=== PATIENT | female | born 1995 | race American Indian/Alaskan Native ===

== ENCOUNTER 2019-03-03 21:42 | Emergency (ER) | payer MEDICAID ==
[2019-03-03 23:01] LABS: Basophils # (Auto) 0.1 K/mm3 (0.0-0.1); Basophils % (Auto) 0.4 % (0.0-1.8); Eosinophils # (Auto) 0.2 K/mm3 (0.0-0.4); Eosinophils % (Auto) 1.2 % (0.0-4.3); Hematocrit 33.1 % (30.3-42.9); Hemoglobin 10.8 gm/dl (10.1-14.3); Lymphocytes # (Auto) 2.8 K/mm3 (1.2-5.4); Lymphocytes % (Auto) 21.6 % (13.4-35.0); Mean Corpuscular HGB Conc 33 % (30-34); Mean Corpuscular Volume 77 fl (79-97); Monocytes # (Auto) 0.9 K/mm3 (0.0-0.8); Platelet Count 370 K/mm3 (140-440); Red Cell Distribution Width 18.1 % (13.2-15.2)
[2019-03-03 23:20] LABS: BUN/Creatinine Ratio 15; Blood Urea Nitrogen 9 mg/dL (7-17); Calcium 9.8 mg/dL (8.4-10.2); Hemolysis Index 1
[2019-03-04 00:59] LABS: Bilirubin,Urine NEG (Negative); Blood,Urine NEG (Negative); Color,Urine Yellow (Yellow); Mucus,Urine FEW /HPF; Protein,Urine <15 mg/dL mg/dL (Negative); Urobilinogen,Urine < 2.0 mg/dL (<2.0)
[2019-03-04] MEDS ORDERED: ZOFRAN IV ONE (02:13)
[2019-03-04] MEDS ORDERED: NACL 0.9% 1000 ML 1,000 ML IV ONE (02:13)
[2019-03-04] MEDS ORDERED: ROCEPHIN/NS 1 GM/50 ML 1 GM/50 ML BAG IV ONE (02:13)
[2019-03-04] MEDS ORDERED: TYLENOL PO ONE (03:18)
--- NOTE | 2019-03-04 03:20 | Ultrasound Report ---
US OB <= 14 weeks fetus INDICATION / CLINICAL INFORMATION: abd pain. COMPARISON: None available. FINDINGS: Single intrauterine gestation demonstrated with heart rate 174 bpm The crown-rump length is 28.6 mm corresponding to a 9 week 5 day gestation. Both ovaries are imaged and appear normal. No fluid collections are seen in the cul-de-sac. IMPRESSION: 1. Viable single 9 week 5 day intrauterine gestation. Signer Name: Andrew Pace MD Signed: 03/04/2019 3:16 AM Workstation Name: [email or web address]
--- NOTE | 2019-03-04 04:38 | Emergency Department Report ---
ED N/V/D HPI - General Chief complaint: Abdominal Pain Stated complaint: EMESIS/ABD PAIN Time Seen by Provider: 03/04/19 02:11 Source: patient Mode of arrival: Ambulatory Limitations: No Limitations - History of Present Illness Initial comments: pt is a 23 y/o aaf who presents for abd pain with nausea and vomiting. pt denies fever or chills pt is G2, pt states n/v is primary complaint there is no vaginal bleeding no vaginal discharge no back pain , last po intake yesterday pt denies diarrhea stools, pain is improved, abd pain described as cramping. MD complaint: nausea, vomiting, abdominal pain (abd cramping ) Onset/Timin -: month(s) Description of Vomiting: food contents Description of Diarrhea: water Associated Abdominal Pain: Yes (abd cramping ) Location: LLQ, RLQ Radiation: none Severity: moderate Pain Scale: 5 Quality: cramping Consistency: constant Improves with: rest Worsens with: movement Associated Symptoms: denies: chest pain, cough, headaches, shortness of breath, syncope - Related Data Previous Rx's Medication Instructions Recorded Last Taken Type Acetaminophen [Acetaminophen TAB] 650 mg PO Q6HR PRN #30 tablet 03/04/19 Unknown Rx Nitrofurantoin [place]/M-Cryst 100 mg PO BID 7 Days #14 capsule 03/04/19 Unknown Rx [Macrobid CAP] Ondansetron [Zofran Odt] 4 mg PO Q8HR #12 tab.rapdis 03/04/19 Unknown Rx Allergies Allergy/AdvReac Type Severity Reaction Status Date / Time No Known Allergies Allergy Unverified 03/03/19 22:39 ED Review of Systems ROS: Stated complaint: EMESIS/ABD PAIN Other details as noted in HPI Constitutional: denies: chills, fever Eyes: denies: eye pain, eye discharge, vision change ENT: denies: ear pain, throat pain Respiratory: denies: cough, shortness of breath, wheezing Cardiovascular: denies: chest pain, palpitations Endocrine: no symptoms reported Gastrointestinal: abdominal pain, nausea, diarrhea. denies: constipation, hematemesis, melena, hematochezia Genitourinary: urgency, dysuria, frequency. denies: hematuria, discharge Musculoskeletal: denies: back pain, joint swelling, arthralgia Skin: denies: rash, lesions Neurological: denies: headache, weakness, paresthesias Psychiatric: denies: anxiety, depression Hematological/Lymphatic: denies: easy bleeding, easy bruising ED Past Medical Hx - Past Medical History Previous Medical History?: No - Surgical History Past Surgical History?: No - Social History Smoking Status: Never Smoker Substance Use Type: None - Medications Home Medications: Home Medications Medication Instructions Recorded Confirmed Last Taken Type Acetaminophen [Acetaminophen TAB] 650 mg PO Q6HR PRN #30 tablet 03/04/19 Unknown Rx Nitrofurantoin [place]/M-Cryst 100 mg PO BID 7 Days #14 capsule 03/04/19 Unknown Rx [Macrobid CAP] Ondansetron [Zofran Odt] 4 mg PO Q8HR #12 tab.rapdis 03/04/19 Unknown Rx ED Physical Exam - General Limitations: No Limitations General appearance: alert, in no apparent distress - Head Head exam: Present: atraumatic, normocephalic - Eye Eye exam: Present: normal appearance, PERRL, EOMI Pupils: Present: normal accommodation - ENT ENT exam: Present: normal orophraynx, mucous membranes moist, TM's normal bilaterally - Neck Neck exam: Present: normal inspection, full ROM. Absent: tenderness, meningismus, lymphadenopathy, thyromegaly - Respiratory Respiratory exam: Present: normal lung sounds bilaterally. Absent: respiratory distress, wheezes, rhonchi, stridor, chest wall tenderness - Cardiovascular Cardiovascular Exam: Present: regular rate, normal rhythm, normal heart sounds. Absent: systolic murmur, diastolic murmur, rubs, gallop - GI/Abdominal GI/Abdominal exam: Present: soft, normal bowel sounds. Absent: distended, tenderness, guarding, rebound, rigid, mass, bruit, hernia - Rectal Rectal exam: Present: deferred - External exam: Present: other (exam deferred per patient ) Speculum exam: Present: erythema, laceration - Extremities Exam Extremities exam: Present: normal inspection, full ROM, normal capillary refill. Absent: tenderness - Back Exam Back exam: Present: normal inspection, full ROM. Absent: tenderness, CVA tenderness (R), CVA tenderness (L), muscle spasm, paraspinal tenderness, rash noted - Neurological Exam Neurological exam: Present: alert, oriented X3, CN II-XII intact, normal gait, reflexes normal. Absent: motor sensory deficit - Expanded Neurological Exam Expanded Patient oriented to: Present: person, place, time Speech: Present: fluid speech Cranial nerves: EOM's Intact: Normal, Gag Reflex: Normal, Tongue Deviation: Normal, Nystagmus: Normal Motor strength exam: RUE: 5, LUE: 5, RLE: 5, LLE: 5 Best Eye Response ([place]): (4) open spontaneously Best Motor Response ([place]): (6) obeys commands Best Verbal Response ([place]): (5) oriented [place] Total: 15 - Psychiatric Psychiatric exam: Present: normal affect - Skin Skin exam: Present: warm, dry, intact, normal color. Absent: rash, cyanosis, erythema, abrasion ED Course Vital Signs 03/03/19 22:34 Temperature 98.7 F Pulse Rate 72 Respiratory 18 Rate Blood Pressure 108/86 O2 Sat by Pulse 100 Oximetry ED Medical Decision Making - Lab Data Result diagrams: 03/03/19 22:46 03/03/19 22:46 Labs 03/03/19 03/03/19 03/03/19 22:46 22:46 22:46 WBC 13.0 H RBC 4.30 Hgb 10.8 Hct 33.1 MCV 77 L MCH 25 L MCHC 33 RDW 18.1 H Plt Count 370 Lymph % (Auto) 21.6 [place] % (Auto) 7.0 Eos % (Auto) 1.2 Baso % (Auto) 0.4 Lymph # 2.8 [place] # 0.9 H Eos # 0.2 Baso # 0.1 Seg Neutrophils % 69.8 Seg Neutrophils # 9.1 H Sodium 134 L Potassium 3.6 Chloride 100.2 Carbon Dioxide 24 Anion Gap 13 BUN 9 Creatinine 0.6 L Estimated GFR > 60 BUN/Creatinine Ratio 15 Glucose 93 Calcium 9.8 HCG, Quant [id number] H Urine Color Urine Turbidity Urine pH Ur Specific [place] Urine Protein Urine Glucose (UA) Urine Ketones Urine Blood Urine Nitrite Urine Bilirubin Urine Urobilinogen Ur Leukocyte Esterase Urine WBC (Auto) Urine RBC (Auto) U Epithel Cells (Auto) Urine Mucus 03/03/19 23:34 WBC RBC Hgb Hct MCV MCH MCHC RDW Plt Count Lymph % (Auto) [place] % (Auto) Eos % (Auto) Baso % (Auto) Lymph # [place] # Eos # Baso # Seg Neutrophils % Seg Neutrophils # Sodium Potassium Chloride Carbon Dioxide Anion Gap BUN Creatinine Estimated GFR BUN/Creatinine Ratio Glucose Calcium HCG, Quant Urine Color Yellow Urine Turbidity Slightly-cloudy Urine pH 5.0 Ur Specific [place] 1.023 Urine Protein <15 mg/dl Urine Glucose (UA) Neg Urine Ketones Neg Urine Blood Neg Urine Nitrite Neg Urine Bilirubin Neg Urine Urobilinogen < 2.0 Ur Leukocyte Esterase Mod Urine WBC (Auto) 25.0 H Urine RBC (Auto) 3.0 U Epithel Cells (Auto) 19.0 H Urine Mucus Few - Radiology Data Radiology results: report reviewed, image reviewed Ordering Physician: MIGUELANGEL GATES NP Date of Service: 03/04/19 Procedure(s): US OB <= 14 weeks fetus Accession Number(s): [id number] cc: MIGUELANGEL GATES NP OB <= 14 weeks fetus INDICATION / CLINICAL INFORMATION: abd pain. COMPARISON: None available. FINDINGS: Single intrauterine gestation demonstrated with heart rate 174 bpm The crown-rump length is 28.6 mm corresponding to a 9 week 5 day gestation. Both ovaries are imaged and appear normal. No fluid collections are seen in the cul-de-sac. IMPRESSION: 1. Viable single 9 week 5 day intrauterine gestation. Signer Name: Andrew Pace MD Signed: 03/04/2019 3:16 AM Workstation Name: [id number] Transcribed By: [place] Dictated By: Andrew Pace MD Electronically Authenticated By: Andrew Pace MD Signed Date/Time: 03/04/19315 DD/ 2 TD/TT: - Medical Decision Making US Single IUP 9 weeks and 3 days, pt now pt currentley tolerating po intake with out n/v, UA noted pos for leuk, wbc, bacteria, plan Critical care attestation.: If time is entered above; I have spent that time in minutes in the direct care of this critically ill patient, excluding procedure time. ED Disposition Clinical Impression: Nausea and vomiting Qualifiers: Vomiting type: unspecified Vomiting Intractability: non-intractable Qualified Code(s): R11.2 - Nausea with vomiting, unspecified Abdominal pain during Qualifiers: Trimester: second trimester Qualified Code(s): O26.892 - Other specified related conditions, second trimester; R10.9 - Unspecified abdominal pain Disposition: - TO HOME OR SELFCARE Is pt being admited?: No Does the pt Need Aspirin: No Condition: Stable Instructions: Abdominal Pain (ED) Prescriptions: Acetaminophen [Acetaminophen TAB] 650 mg PO Q6HR PRN #30 tablet PRN Reason: Pain Nitrofurantoin [place]/M-Cryst [Macrobid CAP] 100 mg PO BID 7 Days #14 capsule Ondansetron [Zofran Odt] 4 mg PO Q8HR #12 tab.rapdis Referrals: LIZZY BAH MD [Staff Physician] - 3-5 Days Forms: Work/School Release Form(ED) Time of Disposition: 04:52
[2019-03-04 05:06] VITALS: BP 107/75
== END 2019-03-04 05:00 | disposition home or self-care (01) ==
LOC: ED 21:42
DX: O21.9 Vomiting of pregnancy, unspecified (principal); O26.891 Other specified pregnancy related conditions, first trimester; R10.32 Left lower quadrant pain; R10.31 Right lower quadrant pain; Z79.899 Other long term (current) drug therapy; Z3A.09 9 weeks gestation of pregnancy
CPT/HCPCS: 36415; 76801; 80048; 81001; 84702; 85025; 87086; 96365; 96375; 99284; J0696; J2405; J7030

== ENCOUNTER 2019-04-03 13:59 | Emergency (ER) | payer MEDICAID ==
[2019-04-03 14:42] VITALS: BP 107/61
--- NOTE | 2019-04-03 14:51 | Emergency Department Report ---
Blank Doc - Documentation Documentation: This is a 23-year-old female britni tpresents with right side lower abdomnial pain. Stated is 12 weeks . Denies any vaginal bleedign. This initial assessment/diagnostic orders/clinical plan/treatment(s) is/are subject to change based on patient's health status, clinical progression and re- assessment by fellow clinical providers in the ED. Further treatment and workup at subsequent clinical providers discretion. Patient/guardians urged not to elope from the ED as their condition may be serious if not clinically assessed and managed. Initial orders include: 1- Patient sent to [facility] for further evaluation and treatment 2-labs 3- UA
[2019-04-03 15:18] LABS: Basophils # (Auto) 0.1 K/mm3 (0.0-0.1); Basophils % (Auto) 0.7 % (0.0-1.8); Eosinophils # (Auto) 0.3 K/mm3 (0.0-0.4); Eosinophils % (Auto) 2.5 % (0.0-4.3); Hematocrit 31.4 % (30.3-42.9); Hemoglobin 10.8 gm/dl (10.1-14.3); Lymphocytes # (Auto) 2.2 K/mm3 (1.2-5.4); Lymphocytes % (Auto) 20.6 % (13.4-35.0); Mean Corpuscular HGB Conc 34 % (30-34); Mean Corpuscular Volume 77 fl (79-97); Monocytes # (Auto) 0.6 K/mm3 (0.0-0.8); Monocytes % (Auto) 5.3 % (0.0-7.3); Platelet Count 320 K/mm3 (140-440); Red Blood Count 4.05 M/mm3 (3.65-5.03); Red Cell Distribution Width 18.3 % (13.2-15.2)
[2019-04-03 15:36] LABS: BUN/Creatinine Ratio 12; Blood Urea Nitrogen 7 mg/dL (7-17); Calcium 9.4 mg/dL (8.4-10.2); Hemolysis Index 5
--- NOTE | 2019-04-03 19:33 | Emergency Department Report ---
ED Female HPI - General Chief complaint: Abdominal Pain Stated complaint: 12WKS /(R) SIDE PAIN Time Seen by Provider: 04/03/19 14:50 Source: patient Mode of arrival: Ambulatory Limitations: No Limitations - History of Present Illness Initial comments: 23-year-old female department complaining of abdominal swelling pain to the right lower quadrant and cramping. States that she has not had a period since some time in December and thinks it is a possibility that she may be but was not quite sure how far along. She has not yet followed up with an [facility]ER REFEREE and denies any vaginal bleeding or vaginal discharge. No nausea or vomiting, chest pain, palpitations, fever, chills, sweats. MD Complaint: pelvic pain Location: suprapubic, RLQ Radiation: non-radiating, RLQ Severity: moderate Quality: cramping, dull Consistency: constant Improves with: none Worsens with: none Are you Now?: Yes (suspects ) Associated Symptoms: abdominal pain. denies: vaginal discharge, vaginal bleeding, loss of appetite, dysuria, hematuria, shortness of breath, syncope, weakness - Related Data Sexually active: Yes Previous Rx's Medication Instructions Recorded Last Taken Type Acetaminophen [Acetaminophen TAB] 650 mg PO Q6HR PRN #30 tablet 03/04/19 Unknown Rx Nitrofurantoin [place]/M-Cryst 100 mg PO BID 7 Days #14 capsule 03/04/19 Unknown Rx [Macrobid CAP] Ondansetron [Zofran Odt] 4 mg PO Q8HR #12 tab.rapdis 03/04/19 Unknown Rx Pnv,Calcium 72/Iron/Folic Acid 1 each PO DAILY #30 tablet 04/03/19 Unknown Rx [ Plus Tablet] Allergies Allergy/AdvReac Type Severity Reaction Status Date / Time No Known Allergies Allergy Unverified 03/03/19 22:39 ED Review of Systems ROS: Stated complaint: 12WKS /(R) SIDE PAIN Other details as noted in HPI Comment: All other systems reviewed and negative ED Past Medical Hx - Past Medical History Previous Medical History?: No - Surgical History Past Surgical History?: No - Social History Smoking Status: Never Smoker Substance Use Type: None - Medications Home Medications: Home Medications Medication Instructions Recorded Confirmed Last Taken Type Acetaminophen [Acetaminophen TAB] 650 mg PO Q6HR PRN #30 tablet 03/04/19 Unknown Rx Nitrofurantoin [place]/M-Cryst 100 mg PO BID 7 Days #14 capsule 03/04/19 Unknown Rx [Macrobid CAP] Ondansetron [Zofran Odt] 4 mg PO Q8HR #12 tab.rapdis 03/04/19 Unknown Rx Pnv,Calcium 72/Iron/Folic Acid 1 each PO DAILY #30 tablet 04/03/19 Unknown Rx [ Plus Tablet] ED Physical Exam - General Limitations: No Limitations General appearance: alert, in no apparent distress - Head Head exam: Present: atraumatic, normocephalic - Eye Eye exam: Present: normal appearance - ENT ENT exam: Present: mucous membranes moist - Neck Neck exam: Present: normal inspection - Respiratory Respiratory exam: Present: normal lung sounds bilaterally. Absent: respiratory distress - Cardiovascular Cardiovascular Exam: Present: regular rate, normal rhythm. Absent: systolic murmur, diastolic murmur, rubs, gallop - GI/Abdominal GI/Abdominal exam: Present: soft, tenderness (to the suprapubic area in the right adnexal region. There was some swelling to the abdomen which appears to be that secondary of a .), normal bowel sounds - Extremities Exam Extremities exam: Present: normal inspection - Back Exam Back exam: Present: normal inspection - Neurological Exam Neurological exam: Present: alert, oriented X3 - Psychiatric Psychiatric exam: Present: normal affect, normal mood - Skin Skin exam: Present: warm, dry, intact, normal color. Absent: rash ED Course Vital Signs 04/03/19 14:40 Temperature 98.5 F Pulse Rate 90 Respiratory 20 Rate Blood Pressure 107/61 O2 Sat by Pulse 99 Oximetry ED Medical Decision Making - Lab Data Result diagrams: 04/03/19 14:58 04/03/19 14:58 - Radiology Data Radiology results: report reviewed (ultrasound shows IUP 14 weeks heart rate 146 bpm no adnexal abnormality) - Medical Decision Making 23-year-old female with cramping pain to the lower abdomen laboratory data was normal ultrasound normal as well she is not suspicious for any pelvic infections and there is no bleeding by surgery performed on with an [facility] REFEREE in a calm fashion for the appropriate management during . Expressed understanding and ultrasound was discussed with her as well Critical care attestation.: If time is entered above; I have spent that time in minutes in the direct care of this critically ill patient, excluding procedure time. ED Disposition Clinical Impression: Pelvic pain during Disposition: TO HOME OR SELFCARE Is pt being admited?: No Does the pt Need Aspirin: No Condition: Stable Instructions: Abdominal Pain (ED), (ED), Abdominal Pain in (ED) Prescriptions: Pnv,Calcium 72/Iron/Folic Acid [ Plus Tablet] 1 each PO DAILY #30 tablet Referrals: SHELLI LENTZ MD [Primary Care Provider] - 3-5 Days [facility] [Provider Group] - 3-5 Days
[2019-04-03 20:34] LABS: Bacteria,Urine 1+ /HPF (Negative); Bilirubin,Urine NEG (Negative); Blood,Urine NEG (Negative); Color,Urine Yellow (Yellow); Mucus,Urine 3+ /HPF; Protein,Urine <15 mg/dL mg/dL (Negative)
--- NOTE | 2019-04-03 21:02 | Ultrasound Report ---
OB ultrasound. 04/03/2019. HISTORY: . Abdominal pain. FINDINGS: A viable intrauterine in the breech position is dated 14 weeks 1 day by kirill payne. The heart tones are 146 bpm. Cervix is closed measuring 3.3 cm. The ovaries are unremarkable. Negative for adnexal mass or fluid. IMPRESSION: 1. Viable intrauterine dated 14 weeks 1 day. 2. Negative for adnexal abnormality. Signer Name: Josue Forrest MD Signed: 04/03/2019 8:57 PM Workstation Name: [id number]
== END 2019-04-03 22:10 | disposition home or self-care (01) ==
LOC: ED 13:59
DX: O26.891 Other specified pregnancy related conditions, first trimester (principal); R10.32 Left lower quadrant pain; Z3A.14 14 weeks gestation of pregnancy
CPT/HCPCS: 36415; 76805; 80048; 81001; 84702; 85025; 99284

== ENCOUNTER 2019-08-24 19:29 | Outpatient (CLI) | payer MEDICAID ==
[2019-08-24 20:09] VITALS: BP 105/67
[2019-08-24] MEDS ORDERED: LACTATED RINGERS 500 ML IV ONE (20:29)
[2019-08-24 21:05] LABS: Bilirubin,Urine NEG (Negative); Blood,Urine NEG (Negative); Color,Urine Yellow (Yellow); Protein,Urine <15 mg/dL mg/dL (Negative)
[2019-08-24 21:06] LABS: Bacteria,Urine 2+ /HPF (Negative); Mucus,Urine 1+ /HPF
== END 2019-08-24 21:44 | disposition home or self-care (01) ==
LOC: TRG 19:29
PROVIDERS: ATTEND Obstetrics & Gynecology
DX: O26.893 Other specified pregnancy related conditions, third trimester (principal); N94.89 Other specified conditions associated with female genital organs and menstrual cycle; Z3A.33 33 weeks gestation of pregnancy
CPT/HCPCS: 59025; 81001